=== PATIENT | male | born 1985 | race Caucasian/White ===

== ENCOUNTER 2023-03-21 14:25 | Emergency (ER) | payer SELFPAY ==
[2023-03-21 14:28] VITALS: BP 125/68; PULSE 84; RESP 18; TEMP 36; O2SAT 99; BMI 33.3
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
[2023-03-21] MEDS: Acetaminophen 500 MG Tablet 1000 MG PO (15:13)
[2023-03-21 16:05] VITALS: BP 149/87; PULSE 74; RESP 16; O2SAT 98
== END 2023-03-21 16:06 | disposition home or self-care (01) ==
PROVIDERS: Emergency Provider Emergency Medicine; Visit Provider Emergency Medicine
DX: S06.0XAA Concussion with loss of consciousness status unknown, initial encounter (principal); F17.210 Nicotine dependence, cigarettes, uncomplicated; S16.1XXA Strain of muscle, fascia and tendon at neck level, initial encounter; V89.0XXA Person injured in unspecified motor-vehicle accident, nontraffic, initial encounter; Y93.89 Activity, other specified; Y92.79 Other farm location as the place of occurrence of the external cause
CPT/HCPCS: 70450; 72125; 99283